=== PATIENT | male | born 1960 | race African-American/Black ===

== ENCOUNTER 2024-11-04 15:54 | Inpatient (IN) | payer SELFPAY ==
[2024-11-04] MEDS ORDERED: Etomidate 40 MG (20 mL) VIAL ONE (16:35)
[2024-11-04] MEDS ORDERED: Midazolam HCl 2 mg/2 ml Vial ONE (16:38)
[2024-11-04] MEDS ORDERED: SUCCINYLCHOLINE/SOD CL,ISO/PF 200 MG/10 ML SYRINGE FS ONE (16:38)
[2024-11-04] MEDS ORDERED: fentaNYL PF 100 MCG/2 ML SYRINGE ONE ×3 (16:39→18:48)
[2024-11-04] MEDS ORDERED: Lidocaine 1% PF 5 ML VIAL ONE (16:39)
[2024-11-04] MEDS ORDERED: Ondansetron PF 4 MG/2 ML Vial ONE (16:39)
[2024-11-04] MEDS ORDERED: Rocuronium Bromide 10 MG/ML (10ML VIAL) ONE (16:40)
[2024-11-04] MEDS ORDERED: PROPOFOL 20 ML ONE (16:40)
[2024-11-04] MEDS ORDERED: CEFAZOLIN 1 GM VIAL ONE (16:41)
[2024-11-04] MEDS ORDERED: PHENYLEPHRINE-NS 100 MCG/ML 10 ML SYRINGE ONE (17:06)
[2024-11-04] MEDS ORDERED: Ondansetron HCl/PF 4 MG/2 ML Vial IVP PRN (17:28)
[2024-11-04] MEDS ORDERED: Promethazine HCl 25 MG/ML VIAL IM PRN (17:28)
[2024-11-04] MEDS ORDERED: Labetalol HCl 100 MG/20 ML VIAL ONE (18:00)
[2024-11-04] MEDS ORDERED: SUGAMMADEX SODIUM 200 MG/2 ML VIAL ONE (18:14)
[2024-11-04] MEDS ORDERED: Senokot S 8.6-50 MG TAB PO PRN (19:15)
[2024-11-04] MEDS ORDERED: hydrALAZINE 20 MG/ML VIAL SLOW IVP PRN (19:17)
[2024-11-04] MEDS ORDERED: Ondansetron ODT 4 MG TAB PO PRN (19:18)
[2024-11-04] MEDS ORDERED: Lorazepam 1 MG TAB PO PRN (19:18)
[2024-11-04] MEDS ORDERED: Electrolyte Replacement Protocol FS SCH (19:30)
[2024-11-04 20:36] LABS: Bilirubin, Direct 0.2 mg/dL (0.1-0.3); Magnesium 1.8 mg/dL (1.6-2.6)
[2024-11-04] MEDS: Thiamine HCl 200 MG/2 ML VIAL SLOW IVP SCH (22:31)
[2024-11-04] MEDS: Magnesium 2 GM/50 ML(in water) 2 GM in Premix 1 BAG IVPB SCH (22:32)
[2024-11-04] MEDS: Lorazepam 1 MG TAB PO SCH (22:38)
[2024-11-05 04:06] LABS: #Basophils 0.03 10x3/uL (0.0-0.2); %Basophils 0.3 % (0.0-1.0); %Eosinophils 1.1 % (0.0-10.0); %Lymphocytes 14.7 % (21.0-51.0); %Monocytes 9.8 % (0.0-10.0); %Neutrophils 73.9 % (42.0-75.0); Hematocrit 27.2 % (42.0-52.0); Hemoglobin 8.9 g/dL (14.0-18.0); Mean Corpuscular HGB CONC 32.7 g/dL (32.0-36.0); Mean Corpuscular Hemoglobin 28.6 pg (27.0-31.0); Mean Corpuscular Volume 87.5 fL (78.0-98.0); Mean Platelet Volume 9.8 fL (7.4-10.4); Platelet Count 380 10x3/uL (130-400); RBC Distribution Width 12.7 % (11.5-14.5); Red Blood Cell (RBC) Count 3.11 mill/uL (4.70-6.10)
[2024-11-05 04:32] LABS: ALT (SGPT) 14 U/L (8-55); AST (SGOT) 19 U/L (5-34); Albumin 3.1 g/dL (3.4-4.8); Alkaline Phosphatase 45 U/L (40-110); Anion Gap 11 mmol/L (10-20); BUN (Urea Nitrogen) 16 mg/dL (8.4-25.7); Bilirubin, Total 0.4 mg/dL (0.2-1.2); Calc. Creatinine Clearance 0 mL/min (70-130); Calcium 8.2 mg/dL (7.8-10.44); Carbon Dioxide 23 mmol/L (23-31); Chloride 108 mmol/L (98-107); Estimated GFR 73; Globulin 3.2 g/dL (2.4-3.5); Glucose 98 mg/dL (80-115); Potassium 3.6 mmol/L (3.5-5.1); Protein, Total 6.3 g/dL (5.8-8.1); Sodium 138 mmol/L (136-145)
[2024-11-05 05:36] VITALS: BMI 24.5
[2024-11-05] MEDS: Acetaminophen 325 MG TAB PO PRN (06:54)
[2024-11-05] MEDS: Morphine 2 MG/ML VIAL SLOW IVP PRN (09:16)
[2024-11-05] MEDS: Multivit, Therapeutic 1 TAB PO SCH (09:16)
[2024-11-05] MEDS: Folic Acid 1 MG TAB PO SCH (09:16)
[2024-11-05] MEDS: Amlodipine 10 MG TAB PO SCH (09:16)
[2024-11-05] MEDS ORDERED: Lorazepam 1 MG TAB PO PRN (19:18)
[2024-11-06 04:57] LABS: #Basophils 0.03 10x3/uL (0.0-0.2); %Basophils 0.3 % (0.0-1.0); %Eosinophils 2.1 % (0.0-10.0); %Lymphocytes 14.9 % (21.0-51.0); %Neutrophils 72.4 % (42.0-75.0); Hemoglobin 8.5 g/dL (14.0-18.0); Mean Corpuscular HGB CONC 31.5 g/dL (32.0-36.0); Mean Corpuscular Volume 88.8 fL (78.0-98.0); Mean Platelet Volume 9.8 fL (7.4-10.4); Platelet Count 342 10x3/uL (130-400); RBC Distribution Width 12.7 % (11.5-14.5); Red Blood Cell (RBC) Count 3.04 mill/uL (4.70-6.10)
[2024-11-06 05:23] LABS: Anion Gap 12 mmol/L (10-20); BUN (Urea Nitrogen) 14 mg/dL (8.4-25.7); Calc. Creatinine Clearance 91 mL/min (70-130); Calcium 8.3 mg/dL (7.8-10.44); Carbon Dioxide 22 mmol/L (23-31); Chloride 107 mmol/L (98-107); Estimated GFR 91; Glucose 105 mg/dL (80-115); Potassium 3.8 mmol/L (3.5-5.1); Sodium 137 mmol/L (136-145)
[2024-11-06] MEDS ORDERED: Lorazepam 1 MG TAB PO PRN (19:18)
[2024-11-06] MEDS: Lorazepam 0.5 MG TAB PO SCH (21:58)
[2024-11-07 04:27] LABS: #Basophils 0.03 10x3/uL (0.0-0.2); %Basophils 0.4 % (0.0-1.0); %Eosinophils 5.6 % (0.0-10.0); %Lymphocytes 18.8 % (21.0-51.0); %Monocytes 9.5 % (0.0-10.0); %Neutrophils 65.3 % (42.0-75.0); Hematocrit 27.6 % (42.0-52.0); Hemoglobin 8.8 g/dL (14.0-18.0); Mean Corpuscular HGB CONC 31.9 g/dL (32.0-36.0); Mean Corpuscular Hemoglobin 28.5 pg (27.0-31.0); Mean Corpuscular Volume 89.3 fL (78.0-98.0); Mean Platelet Volume 9.8 fL (7.4-10.4); Platelet Count 389 10x3/uL (130-400); RBC Distribution Width 12.5 % (11.5-14.5); Red Blood Cell (RBC) Count 3.09 mill/uL (4.70-6.10)
[2024-11-07 04:46] LABS: Anion Gap 14 mmol/L (10-20); BUN (Urea Nitrogen) 12 mg/dL (8.4-25.7); Calc. Creatinine Clearance 97 mL/min (70-130); Calcium 8.7 mg/dL (7.8-10.44); Carbon Dioxide 21 mmol/L (23-31); Chloride 105 mmol/L (98-107); Estimated GFR 95; Glucose 107 mg/dL (80-115); Sodium 136 mmol/L (136-145)
[2024-11-07] MEDS: Thiamine 100 MG TAB PO SCH (09:03)
[2024-11-07 16:57] VITALS: BP 167/78; TEMP 97.8
[2024-11-07] MEDS ORDERED: Lorazepam 0.5 MG TAB PO PRN (19:18)
== END 2024-11-07 18:48 | disposition home or self-care (01) | DRG 669 ==
LOC: SJX 15:54 → 2NO 16:45 → OBSVTOIN 11-06 08:29
PROVIDERS: ADMIT Family Medicine; ATTEND Internal Medicine
PROC: 0TBB8ZZ Excision of Bladder, Via Natural or Artificial Opening Endoscopic (ICD-10-PCS; principal; 2024-11-04)
DX: C67.9 Malignant neoplasm of bladder, unspecified (principal); D62 Acute posthemorrhagic anemia; N13.30 Unspecified hydronephrosis; I10 Essential (primary) hypertension; Z88.0 Allergy status to penicillin; F10.10 Alcohol abuse, uncomplicated; Z79.899 Other long term (current) drug therapy; N36.8 Other specified disorders of urethra
CPT/HCPCS: 36415; 36416; 51700; 51702; 80048; 80053; 82248; 83735; 84100; 85025; 88307; 96374; 96375; 96376; G0378; J0690; J2250; J2272; J2405; J2704; J3411; J3475

== ENCOUNTER 2024-11-24 14:24 | Outpatient (CLI) | payer OTHER | END 2024-11-24 14:25 | disposition home or self-care (01) | LOC: BICCT 14:24 | PROVIDERS: ATTEND Internal Medicine | DX: C67.1 Malignant neoplasm of dome of bladder (principal); R91.8 Other nonspecific abnormal finding of lung field | CPT/HCPCS: 71260 ==